=== PATIENT | male | born 1990 | race Caucasian/White ===

== ENCOUNTER 2019-01-07 18:04 | Emergency (ER) | payer BC, OTHER ==
[2019-01-07 18:24] VITALS: BP 167/106
[2019-01-07] MEDS ORDERED: Ketorolac INJ* 30 MG/ML 1 ML VIAL IM ONE (18:37)
--- NOTE | 2019-01-07 18:40 | UC ---
[facility] H[facility] - HPI Summary HPI Summary: 28-year-old male with left-sided jaw pain. He has had this chronically over about the past month but it has been worsening. He did go to a dentist and the dentist took x-rays which were normal and showed no abscess. Patient states over the past 2 days the left-sided lower jaw pain has worsened. He denies any fever or chills. He states it does radiate up towards his left ear. He has an endodontic appointment tomorrow at 2:00 PM. - History of Current Complaint Chief Complaint: UCGeneralIllness Stated Complaint: LEFT SIDE JAW PAIN (2 WEEKS) Time Seen by Provider: 01/07/19 18:22 Hx Obtained From: Patient Onset/Duration: Gradual Onset Severity: Moderate Pain Intensity: 8 Aggravating Factor(s): Nothing Alleviating Factor(s): Nothing - Allergies/Home Medications Allergies/Adverse Reactions: Allergies Allergy/AdvReac Type Severity Reaction Status Date / Time No Known Allergies Allergy Verified 01/07/19 18:24 Home Medications: Home Medications Aspirin/Acetaminophen/Caffeine [Excedrin Migraine Caplet] 2 each PO DAILY [History Confirmed 01/07/19] PMH/Surg Hx/FS Hx/Imm Hx Previously Healthy: Yes - Surgical History Surgical History: Yes Surgery Procedure, Year, and Place: SVT ablasion 2016 - Social History Alcohol Use: Occasionally Substance Use Type: None Smoking Status (MU): Never Smoked Tobacco Review of Systems All Other Systems Reviewed And Are Negative: Yes Constitutional: Positive: Negative Skin: Positive: Negative Eyes: Positive: Negative ENT: Positive: Dental Pain - Patient is not quite sure whether this is dental pain, pain in his gums or, as his dentist stated, it may be some sort of nerve pain radiating up from the job. Respiratory: Positive: Negative Cardiovascular: Positive: Negative Gastrointestinal: Positive: Negative Genitourinary: Positive: Negative Motor: Positive: Negative Neurovascular: Positive: Negative Musculoskeletal: Positive: Negative Neurological: Positive: Negative Psychological: Positive: Negative Is Patient Immunocompromised?: No Physical Exam Triage Information Reviewed: Yes Appearance: Well-Appearing, No Pain Distress, Well-Nourished - Patient is not ill-appearing however he is holding a cold compress to his left jaw. Vital Signs: Initial Vital Signs Temp 97.3 F 01/07/19 18:18 Pulse 62 01/07/19 18:18 Resp 20 01/07/19 18:18 BP 167/106 01/07/19 18:18 Pulse Ox 96 01/07/19 18:18 Vital Signs Reviewed: Yes ENT: Positive: Hearing grossly normal, Pharynx normal, TMs normal, Dental tenderness, Other - The patient's lower gumline is pink with no erythema and no evidence of abscess formation, no pain on firm palpation of the upper or lower teeth, no pain on palpating the buccal mucosa on the left side of his cheek. Tympanic membrane's are pearly vila with [place] and light reflex. I find no evidence of an abscess formation. Dental Exam: Normal Neck exam: Normal Neck: Positive: Supple, Nontender, No Lymphadenopathy Respiratory Exam: Normal Respiratory: Positive: Lungs clear, Normal breath sounds, No respiratory distress, No accessory muscle use Cardiovascular Exam: Normal Cardiovascular: Positive: RRR, No Murmur, Pulses Normal, Brisk Capillary Refill - Patient's blood sugar is elevated here however he states is because it's mildly elevated normally but he also has mild whitecoat syndrome as well as jaw pain. Musculoskeletal Exam: Normal Neurological Exam: Normal Neurological: Positive: Alert, Muscle Tone Normal Psychological Exam: Normal Skin: Positive: Other - Find no rashes externally or in his ear canal. No cellulitis or swelling present of his jaw. Dental Complaint Course/Dx - Course Course Of Treatment: Patient was given Toradol 30 mg IM in the urgent care Center. I'm also giving him 40 mg of prednisone. He has an appointment tomorrow 2:00 with the fast food shift supervisor. I advised him to definitely keep that appointment. He is agreeable to this. - Differential Dx/Diagnosis Differential Diagnosis/Dx: Other - Left lower jaw pain Provider Diagnosis: Jaw pain, non-TMJ Discharge - Sign-Out/Discharge Documenting (check all that apply): Patient Departure All imaging exams completed and their final reports reviewed: No Studies - Discharge Plan Condition: Fair Disposition: HOME Prescriptions: predniSONE [Prednisone 20 MG TAB] 40 mg PO ONCE 1 Days #2 tablet Patient Education Materials: Toothache (ED) Referrals: Candy [place] MD [Primary Care Provider] - Additional Instructions: Take the prednisone with food. Keep your appointment with the fast food shift supervisor tomorrow. - Billing Disposition and Condition Condition: FAIR Disposition: Home - Attestation Statements Provider Attestation: Per institutional requirements, I have reviewed the chart, however, I was not consulted specifically or made aware of this patient by the midlevel provider. I did not personally evaluate, interact with , or disposition this patient.
== END 2019-01-07 19:07 | disposition home or self-care (01) ==
LOC: UCCORT 18:04
DX: R68.84 Jaw pain (principal)
CPT/HCPCS: 96372; 99202; G0463; J1885